=== PATIENT | female | born 1960 | race Hispanic/Latino ===

== ENCOUNTER 2019-01-27 05:00 | Observation (INO) | payer BC ==
[2019-01-24 10:01] LABS: BASOPHILS % 0.3 % (0.0-1.0); EOSINOPHILS # (AUTO) 0.1 (0.0-0.4); EOSINOPHILS % 1.1 % (0.0-6.0); HEMATOCRIT 39.6 % (34.2-44.1); HEMOGLOBIN 13.1 g/dL (12.0-16.0); LYMPHOCYTES # (AUTO) 2.3 (1.0-3.2); LYMPHOCYTES % 32.8 % (18.0-39.1); MEAN CORPUSCULAR HGB CONC 33.1 g/dL (31-35); MEAN CORPUSCULAR VOLUME 90.6 fL (81-99); MONOCYTES # (AUTO) 0.5 (0.2-0.8); MONOCYTES % 6.4 % (4.4-11.3); NEUTROPHILS # (AUTO) 4.1 (2.1-6.9); NEUTROPHILS % 59.1 % (38.7-80.0); PLATELET COUNT 365 x10e3/uL (140-360); RED BLOOD COUNT 4.37 x10e6/uL (3.6-5.1); RED CELL DISTRIBUTION WIDTH 11.9 % (11.7-14.4)
[~2019-01-27] VITALS: Ht 149.9 cm; Wt 54.4 kg
[~2019-01-27 05:00] MED LIST: ACETAMINOPHEN650 MG PO; CHOLESTEROL MED PO; FAMOTIDINE20 MG PO; HYDROCODONE-AP1 EA15 PO; IBUPROFEN400 MG PO; SERTRALINE HCL25 MG PO; TRAMADOL HCL50 MG PO; [UNRECOGNIZED DRUG - OTHER] PO
--- OUTSIDE RECORDS SUMMARY | 2019-01-27 05:09 | XMS REPORT | Clinical Summary ---
Author Author [facility] Organization [facility] Address Unknown Phone Unavailable Care Team Providers Care Exhibit Builder Name Role Phone Alec Zapata MD PCP Allergies Comments Active Allergy Reactions Severity Noted Date dizziness Tramadol Other (See 07/31/2017 Comments) Medications End Date Status Medication Sig Dispensed Refills Start Date Active lidocaine (XYLOCAINE) 5 % APPLY 1-2 3 ointment GRAMS TO 7 AFFECTED AREA(S) 3-4 TIMES A DAY. Active ibuprofen (ADVIL,MOTRIN) TK 1 T PO BID 0 800 MG tablet PRN 8 Active ibuprofen (ADVIL,MOTRIN) Take 1 tablet 30 tablet 0 600 MG tablet (600 mg 8 total) by mouth every 6 (six) hours as needed for mild pain for up to 30 doses. 07/24/2018 Discontinued meloxicam (MOBIC) 15 mg Take 1 tablet 30 tablet 0 tablet (15 mg total) 7 by mouth daily. Active Problems Problem Noted Date Chronic pain of right knee 07/31/2017 Post-traumatic osteoarthritis of right knee 07/31/2017 Encounters Care Team Description Date Type Specialty Joshua Jensen DO Abdominal wall strain, initial encounter (Primary Dx) 07/24/2018 Emergency Emergency Medicine after 01/26/2018 Social History Date Tobacco Use Types Packs/Day Years Used Former Smoker Alcohol Use Drinks/Week oz/Week Comments No Sex Assigned at Date Recorded Not on file Industry Job Start Date Occupation Not on file Not on file Not on file Travel End Travel History Travel Start No recent travel history available. Last Filed Vital Signs Time Taken Vital Sign Reading 07/24/2018 12:22 PM CDT Blood Pressure 139/75 07/24/2018 12:22 PM CDT Pulse 58 07/24/2018 12:22 PM CDT Temperature 35.9 C (96.7 F) 07/24/2018 12:22 PM CDT Respiratory Rate 18 07/24/2018 12:22 PM CDT Oxygen Saturation 100% - Inhaled Oxygen - Concentration 07/24/2018 7:53 AM CDT Weight 56.2 kg (124 lb) 07/24/2018 7:53 AM CDT Height 149.9 cm (4' 11") 07/24/2018 7:53 AM CDT Body Mass Index 25.04 Plan of Treatment Health Maintenance Due Date Last Done Comments CERVICAL CANCER SCREENING 1981 BREAST CANCER SCREENING 2010 COLON CANCER SCREENING 2010 SHINGLES VACCINES (#1) 2010 INFLUENZA VACCINE 05/22/2019 Procedures Comments Procedure Name Priority Date/Time Associated Diagnosis CT ABDOMEN PELVIS W STAT 07/24/2018 CONTRAST 11:26 AM CDT URINALYSIS SCREEN AND Routine 07/24/2018 MICROSCOPY, WITH REFLEX 9:21 AM CDT TO CULTURE URINE CULTURE Routine 07/24/2018 9:21 AM CDT ESTIMATED GFR STAT 07/24/2018 9:07 AM CDT COMPREHENSIVE METABOLIC STAT 07/24/2018 PANEL 9:07 AM CDT HC COMPLETE BLD COUNT STAT 07/24/2018 W/AUTO DIFF 9:07 AM CDT after 01/26/2018 Results * CT Abdomen Pelvis W Contrast (07/24/2018 11:26 AM CDT) Narrative Performed At EXAMINATION:CT ABDOMEN PELVIS W CONTRAST [facility] CLINICAL HISTORY:llq abd pain TECHNIQUE: Multiple axial CT images of the abdomen and pelvis are obtained with the use of intravenous contrast. Coronal and sagittal 3-D reconstructions are obtained. CT scans are performed using radiation dose reduction techniques.Technical factors are evaluated and adjusted to ensure appropriate moderation of exposure.Automated dose management technology is applied to adjust radiation exposure while achieving a diagnostic quality image. COMPARISON:None. FINDINGS: Visualized lower lung zones are clear. The gallbladder has been removed. The CT appearance of the liver, spleen, adrenal glands and pancreas is unremarkable. The abdominal aorta has no aneurysmal dilatation. There is no retroperitoneal adenopathy. The right kidney does not have any hydronephrosis. There are no stones seen within the right kidney. The left kidney demonstrates multiple 2 mm stones to be present. There is no hydronephrosis nor any solid renal mass. Stones are seen within the upper pole. CT Pelvis: There is no evidence of any pneumoperitoneum. Stomach does not demonstrate any focal wall thickening. Evaluation of the GI tract is limited without any oral contrast. A ventral hernia is present with only fat extending through the hernia. There is no evidence of any pneumoperitoneum. Colon does not demonstrate any focal wall thickening. There is no focal bowel obstruction. The colon does not have any focal inflammatory change. Small bowel is not dilated. There is no inguinal hernia. The bladder does not demonstrate any masses. There is no inguinal adenopathy present. IMPRESSION: 1. The left kidney demonstrates multiple 2 mm nonobstructing stone seen within the upper pole of the left kidney. There is no hydronephrosis. 2. The right kidney does not have any stones or any hydronephrosis. 3. There are no ureteral or bladder stones. 4. There is no bowel obstruction nor any dilated loops of bowel. 5. The colon does not have any focal inflammation. Mild colonic fecal retention is present. [id number] Procedure Note Hm Interface, Radiology Results Incoming - 07/24/2018 11:36 AM CDT EXAMINATION: CT ABDOMEN PELVIS W CONTRAST CLINICAL HISTORY: llq abd pain TECHNIQUE: Multiple axial CT images of the abdomen and pelvis are obtained with the use of intravenous contrast. Coronal and sagittal 3-D reconstructions are obtained. CT scans are performed using radiation dose reduction techniques. Technical factors are evaluated and adjusted to ensure appropriate moderation of exposure. Automated dose management technology is applied to adjust radiation exposure while achieving a diagnostic quality image. COMPARISON: None. FINDINGS: Visualized lower lung zones are clear. The gallbladder has been removed. The CT appearance of the liver, spleen, adrenal glands and pancreas is unremarkable. The abdominal aorta has no aneurysmal dilatation. There is no retroperitoneal adenopathy. The right kidney does not have any hydronephrosis. There are no stones seen within the right kidney. The left kidney demonstrates multiple 2 mm stones to be present. There is no hydronephrosis nor any solid renal mass. Stones are seen within the upper pole. CT Pelvis: There is no evidence of any pneumoperitoneum. Stomach does not demonstrate any focal wall thickening. Evaluation of the GI tract is limited without any oral contrast. A ventral hernia is present with only fat extending through the hernia. There is no evidence of any pneumoperitoneum. Colon does not demonstrate any focal wall thickening. There is no focal bowel obstruction. The colon does not have any focal inflammatory change. Small bowel is not dilated. There is no inguinal hernia. The bladder does not demonstrate any masses. There is no inguinal adenopathy present. IMPRESSION: 1. The left kidney demonstrates multiple 2 mm nonobstructing stone seen within the upper pole of the left kidney. There is no hydronephrosis. 2. The right kidney does not have any stones or any hydronephrosis. 3. There are no ureteral or bladder stones. 4. There is no bowel obstruction nor any dilated loops of bowel. 5. The colon does not have any focal inflammation. Mild colonic fecal retention is present. [id number] Performing Organization Address City/State/Zipcode Phone Number [facility] [address] [place] [address] * Urinalysis screen and microscopy, with reflex to culture (07/24/2018 9:21 AM CDT) Specimen site Clean catch [facility] GENOMIC MEDICINE Color, UA Straw [facility] GENOMIC MEDICINE Appearance, UA Clear [facility]OLOGY AND GENOMIC MEDICINE Specific gravity, UA 1.014 1.001 - 1.035 [facility]OLOGY AND GENOMIC MEDICINE pH, UA 5.0 5.0 - 8.5 [facility] AND GENOMIC MEDICINE Protein, UA Negative Negative [facility] AND GENOMIC MEDICINE Glucose, UA Negative Negative [facility]OLOGY AND GENOMIC MEDICINE Ketones, UA Negative Negative [facility] AND GENOMIC MEDICINE Bilirubin, UA Negative Negative [facility] AND GENOMIC MEDICINE Blood, UA Negative Negative [facility] AND GENOMIC MEDICINE Nitrite, UA Negative Negative [facility]OLOGY AND GENOMIC MEDICINE Urobilinogen, UA Negative <2.0 [facility] AND GENOMIC MEDICINE Leukocyte esterase, UA Negative Negative [facility]OLOG[facility] AND GENOMIC MEDICINE Epithelial cells, UA Few /HPF [facility]OLOGY AND GENOMIC MEDICINE WBC, UA 1 0 - 5 /HPF [facility]OLOG[facility] AND GENOMIC MEDICINE RBC, UA None seen 0 - 5 /HPF [facility] GENOMIC MEDICINE Bacteria, UA None seen None seen [facility] GENOMIC MEDICINE Yeast, UA None seen [facility] AND GENOMIC MEDICINE Yeast with pseudohyphae, None seen [facility] UA PATHOLOGY AND GENOMIC MEDICINE Hyaline casts, UA 1 /LPF [facility]OMIC MEDICINE Specimen Urine Performing Organization Address City/State/Zipcode Phone Number [facility] [address] [place] [address] PATHOLOGY AND GENOMIC MEDICINE * Urine culture (07/24/2018 9:21 AM CDT) Urine culture SEE COMMENTComment: [facility] Bacteriuria screen negative. PATHOLOGY AND GENOMIC MEDICINE Specimen Urine Performing Organization Address City/[facility]/Zipcode Phone Number [facility] [address] [place] [address] PATHOLOGY AND GENOMIC MEDICINE * Estimated GFR (07/24/2018 9:07 AM CDT) Estimated GFR 90 mL/min/1.73 m2 [facility] Comment: PATHOLOGY AND CatergoryUnitsInte GENOMIC MEDICINE rpretation G1 >=90 Normal or high G2 60-89Mildly decreased Y1s16-50 Mildly to moderately decreased [id number] Moderately to severely decreased G4 15-29Severely decreased G5 <15Kidney failure The eGFR was calculated using the Chronic Kidney Disease Epidemiology Collaboration (CKD-EPI) equation. Interpretation is based on recommendations of the National Kidney Foundation-Kidney Disease Outcomes Quality Initiative (NKF-KDOQI) published in 2014. Specimen Plasma specimen Performing Organization Address City/[facility]/Zipcode Phone Number [facility] [address] [place] [address] PATHOLOGY AND GENOMIC MEDICINE * CBC with platelet and differential (07/24/2018 9:07 AM CDT) WBC 5.5 4.2 - 11.0 k/uL [facility] GENOMIC MEDICINE RBC 4.30 4.04 - 5.86 m/uL [facility] GENOMIC MEDICINE HGB 12.7 11.5 - 15.3 g/dL [facility] AND GENOMIC MEDICINE HCT 38.5 34.0 - 45.0 % [facility] AND GENOMIC MEDICINE MCV 89.5 80.0 - 98.0 fL [facility] GENOMIC MEDICINE MCH 29.5 27.0 - 34.0 pg [facility]OLOG[facility] AND GENOMIC MEDICINE MCHC 33.0 31.5 - 36.5 g/dL [facility]OLOG[facility] AND GENOMIC MEDICINE RDW - SD 39.8 37.0 - 51.0 fL [facility] AND GENOMIC MEDICINE MPV 9.8 7.4 - 10.4 fL [facility] GENOMIC MEDICINE Platelet count 387 150 - 400 k/uL [facility]OLOGY AND GENOMIC MEDICINE Nucleated RBC 0.00 /100 WBC [facility]OLOGY AND GENOMIC MEDICINE Neutrophils 51.2 36.0 - 66.0 % [facility] AND GENOMIC MEDICINE Lymphocytes 41.3 24.0 - 44.0 % [facility] AND GENOMIC MEDICINE Monocytes 5.5 0.0 - 6.0 % [facility] GENOMIC MEDICINE Eosinophils 1.6 0.0 - 6.0 % [facility] AND GENOMIC MEDICINE Basophils 0.2 0.0 - 1.2 % [facility] AND GENOMIC MEDICINE Immature granulocytes 0.2 0.0 - 1.0 % [facility] GENOMIC MEDICINE Specimen Blood Performing Organization Address City/State/Zipcode Phone Number [facility] [address] [place] [address] PATHOLOGY AND GENOMIC MEDICINE * Comprehensive metabolic panel (07/24/2018 9:07 AM CDT) Sodium 139 135 - 150 mEq/L [facility] AND GENOMIC MEDICINE Potassium 4.3 3.5 - 5.0 mEq/L [facility]OLOGY AND GENOMIC MEDICINE Chloride 103 98 - 112 mEq/L [facility]Y AND GENOMIC MEDICINE CO2 24 24 - 31 mmol/L [facility]OLOGY AND GENOMIC MEDICINE Anion gap 12@ANIO 7 - 15 mEq/L [facility]OLOGY AND GENOMIC MEDICINE BUN 16 7 - 18 mg/dL [facility]OLOGY AND GENOMIC MEDICINE Creatinine 0.74 0.50 - 0.90 mg/dL [facility]OLOGY AND GENOMIC MEDICINE Glucose 102 (H) 65 - 100 mg/dL [facility]OLOGY AND GENOMIC MEDICINE Calcium 9.2 8.3 - 10.2 mg/dL [facility]OLOGY AND GENOMIC MEDICINE Protein 7.7 6.3 - 8.3 g/dL [facility]OLOGY AND GENOMIC MEDICINE Albumin 4.1 3.5 - 5.0 g/dL [facility]OLOG[facility] AND GENOMIC MEDICINE A/G ratio 1.1 0.7 - 3.8 [facility]OLOG[facility] AND GENOMIC MEDICINE Alkaline phosphatase 104 0 - 104 U/L [facility] AND GENOMIC MEDICINE AST 25 10 - 35 U/L [facility]OLOGY AND GENOMIC MEDICINE ALT 19 5 - 50 U/L [facility] PATHOLOGY AND GENOMIC MEDICINE Total bilirubin 0.3 0.2 - 1.2 mg/dL [facility] AND GENOMIC MEDICINE Specimen Plasma specimen Performing Organization Address City/State/[facility] Phone Number [facility] [address] [place] [address] PATHOLOGY AND GENOMIC MEDICINE after 01/26/2018 Insurance Payer Benefit Subscriber ID Type Phone Address Plan / Group BCBS BCBS xxxxxxxxxxxx PPO CHOICE PPO/[place] [id number] [facility] ([place]) [place] [address] Advance Directives Patient has advance care planning documents on file. For more information, bing hart contact: Jovani Juan [address] [place] [address]
[2019-01-27] MEDS ORDERED: CELECOXIB 200 MG CAP ONE (05:23)
[2019-01-27] MEDS ORDERED: DEXAMETHASONE SOD PHOS 10 MG/1 ML VIAL ONE (05:23)
[2019-01-27] MEDS ORDERED: CEFAZOLIN SOD 2 GM/D5W 50ML 50 ML IV ONE (05:24)
[2019-01-27] MEDS ORDERED: GABAPENTIN 300 MG CAP ONE (05:24)
[2019-01-27] MEDS ORDERED: SODIUM CHLORIDE 0.9% 500ML 500 ML ONE (05:55)
[2019-01-27] MEDS ORDERED: VANCOMYCIN HCL 1,000 MG ONE (05:55)
[2019-01-27] MEDS ORDERED: BACITRACIN 50,000 UNIT VIAL ONE (05:56)
[2019-01-27] MEDS ORDERED: TRANEXAMIC ACID 1,000 MG/10 ML ML ONE (05:56)
[2019-01-27] MEDS ORDERED: ROPIVACAINE 246.25 MG, EPINEPHRINE HCL 1:1000 1ML 0.5 MG, CLONIDINE HCL 0.08 MG, KETORO... INJ ONE ×5 (07:30)
[2019-01-27] MEDS ORDERED: PROMETHAZINE HCL (IM) 25 MG/ML VIAL IM PRN (08:30)
[2019-01-27] MEDS ORDERED: ACETAMINOPHEN 650 MG SUPP PR PRN (08:30)
[2019-01-27] MEDS ORDERED: ONDANSETRON HCL INJ 2MG/ML 2ML 2 MG/ML VIAL IV PRN (08:30)
[2019-01-27] MEDS ORDERED: HYDROCODONE/APAP 7.5MG-325MG 1 EA TAB PO PRN (08:30)
[2019-01-27] MEDS ORDERED: DIPHENHYDRAMINE HCL INJ 50 MG/ML VIAL IM/IV PRN (08:30)
[2019-01-27] MEDS ORDERED: DOCUSATE SODIUM 100 MG CAP PO PRN (08:30)
--- OUTSIDE RECORDS SUMMARY | 2019-01-27 08:42 | XMS REPORT | Clinical Summary ---
Author Author [facility] Address Unknown Phone Unavailable Care Team Providers Care Campus Director Name Role Phone Alec Zapata MD PCP [...] inflammation. Mild colonic fecal retention is present. [id number] Procedure Note Hm Interface, Radiology Results Incoming [...] inflammation. Mild colonic fecal retention is present. [id number] Performing Organization Address City/State/Zipcode Phone Number [facility] [address] [place] [address] * Urinalysis screen and microscopy, with reflex to culture (07/24/2018 9:21 AM CDT) Specimen site Clean catch [facility] DE[facility]MENT OF PATHOLOGY AND GENOMIC MEDICINE Color, UA Straw [facility] OF PATHOLOGY AND GENOMIC MEDICINE Appearance, UA Clear [facility]MENT OF PATHOLOGY AND GENOMIC MEDICINE Specific gravity, UA 1.014 1.001 - 1.035 [facility]MENT OF PATHOLOGY AND GENOMIC MEDICINE pH, UA 5.0 5.0 - 8.5 [facility]MENT OF PATHOLOGY AND GENOMIC MEDICINE Protein, UA Negative Negative [facility]MENT OF PATHOLOGY AND GENOMIC MEDICINE Glucose, UA Negative Negative [facility]MENT OF PATHOLOGY AND GENOMIC MEDICINE Ketones, UA Negative Negative [facility]MENT OF PATHOLOGY AND GENOMIC MEDICINE Bilirubin, UA Negative Negative [facility] OF PATHOLOGY AND GENOMIC MEDICINE Blood, UA Negative Negative [facility]MENT OF PATHOLOGY AND GENOMIC MEDICINE Nitrite, UA Negative Negative [facility]MENT OF PATHOLOGY AND GENOMIC MEDICINE Urobilinogen, UA Negative <2.0 [facility]MENT OF PATHOLOGY AND GENOMIC MEDICINE Leukocyte esterase, UA Negative Negative [facility]MENT OF PATHOLOGY AND GENOMIC MEDICINE Epithelial cells, UA Few /HPF [facility] DEPARTMENT OF PATHOLOGY AND GENOMIC MEDICINE WBC, UA 1 0 - 5 /HPF [facility] DEPARTMENT OF PATHOLOGY AND GENOMIC MEDICINE RBC, UA None seen 0 - 5 /HPF [facility]MENT OF PATHOLOGY AND GENOMIC MEDICINE Bacteria, UA None seen None seen [facility]MENT OF PATHOLOGY AND GENOMIC MEDICINE Yeast, UA None seen [facility]MENT OF PATHOLOGY AND GENOMIC MEDICINE Yeast with pseudohyphae, None seen [facility] OF UA PATHOLOGY AND GENOMIC MEDICINE Hyaline casts, UA 1 /LPF [facility] OF PATHOLOGY AND GENOMIC MEDICINE Specimen Urine Performing Organization Address City/State/Zipcode Phone Number [facility] DE[facility] OF [address] [place] [address] PATHOLOGY AND GENOMIC MEDICINE * Urine culture (07/24/2018 9:21 AM CDT) Urine culture SEE COMMENTComment: [facility] DE[facility]MENT OF Bacteriuria screen negative. PATHOLOGY AND GENOMIC MEDICINE Specimen Urine Performing Organization Address City/[facility]/Zipcode Phone Number [facility] DEPARTMENT OF [address] [place] [address] PATHOLOGY AND GENOMIC MEDICINE * Estimated GFR (07/24/2018 9:07 AM CDT) Estimated GFR 90 mL/min/1.73 m2 [facility] OF Comment: PATHOLOGY AND CatergoryUnitsInte GENOMIC MEDICINE rpretation G1 >=90 Normal or high G2 60-89Mildly decreased W2e90-56 Mildly to moderately decreased [id number] Moderately to severely decreased G4 15-29Severely decreased G5 <15Kidney failure The eGFR was calculated using the Chronic Kidney Disease Epidemiology Collaboration (CKD-EPI) equation. Interpretation is based on recommendations of the National Kidney Foundation-Kidney Disease Outcomes Quality Initiative (NKF-KDOQI) published in 2014. Specimen Plasma specimen Performing Organization Address City/[facility]/Zipcode Phone Number [facility] DE[facility]MENT OF [address] [place] [address] PATHOLOGY AND GENOMIC MEDICINE * CBC with platelet and differential (07/24/2018 9:07 AM CDT) WBC 5.5 4.2 - 11.0 k/uL [facility] DEPARTMENT OF PATHOLOGY AND GENOMIC MEDICINE RBC 4.30 4.04 - 5.86 m/uL [facility] DE[facility]MENT OF PATHOLOGY AND GENOMIC MEDICINE HGB 12.7 11.5 - 15.3 g/dL [facility] DE[facility]MENT OF PATHOLOGY AND GENOMIC MEDICINE HCT 38.5 34.0 - 45.0 % [facility] DEPARTMENT OF PATHOLOGY AND GENOMIC MEDICINE MCV 89.5 80.0 - 98.0 fL [facility] DEPARTMENT OF PATHOLOGY AND GENOMIC MEDICINE MCH 29.5 27.0 - 34.0 pg [facility] DEPARTMENT OF PATHOLOGY AND GENOMIC MEDICINE MCHC 33.0 31.5 - 36.5 g/dL [facility] DEPARTMENT OF PATHOLOGY AND GENOMIC MEDICINE RDW - SD 39.8 37.0 - 51.0 fL [facility] DEPARTMENT OF PATHOLOGY AND GENOMIC MEDICINE MPV 9.8 7.4 - 10.4 fL [facility]PARTMENT OF PATHOLOGY AND GENOMIC MEDICINE Platelet count 387 150 - 400 k/uL [facility] DEPARTMENT OF PATHOLOGY AND GENOMIC MEDICINE Nucleated RBC 0.00 /100 WBC [facility] DEPARTMENT OF PATHOLOGY AND GENOMIC MEDICINE Neutrophils 51.2 36.0 - 66.0 % [facility] DEPARTMENT OF PATHOLOGY AND GENOMIC MEDICINE Lymphocytes 41.3 24.0 - 44.0 % [facility] DEPARTMENT OF PATHOLOGY AND GENOMIC MEDICINE Monocytes 5.5 0.0 - 6.0 % [facility] DEPARTMENT OF PATHOLOGY AND GENOMIC MEDICINE Eosinophils 1.6 0.0 - 6.0 % [facility] DEPARTMENT OF PATHOLOGY AND GENOMIC MEDICINE Basophils 0.2 0.0 - 1.2 % [facility] DEPARTMENT OF PATHOLOGY AND GENOMIC MEDICINE Immature granulocytes 0.2 0.0 - 1.0 % [facility] DEPARTMENT OF PATHOLOGY AND GENOMIC MEDICINE Specimen Blood Performing Organization Address City/State/Zipcode Phone Number [facility] [address] [place] [address] PATHOLOGY AND GENOMIC MEDICINE * Comprehensive metabolic panel (07/24/2018 9:07 AM CDT) Sodium 139 135 - 150 mEq/L [facility] DEPARTMENT OF PATHOLOGY AND GENOMIC MEDICINE Potassium 4.3 3.5 - 5.0 mEq/L [facility] DEPARTMENT OF PATHOLOGY AND GENOMIC MEDICINE Chloride 103 98 - 112 mEq/L [facility] OF PATHOLOGY AND GENOMIC MEDICINE CO2 24 24 - 31 mmol/L [facility] OF PATHOLOGY AND GENOMIC MEDICINE Anion gap 12@ANIO 7 - 15 mEq/L [facility] DEPARTMENT OF PATHOLOGY AND GENOMIC MEDICINE BUN 16 7 - 18 mg/dL [facility] DEPARTMENT OF PATHOLOGY AND GENOMIC MEDICINE Creatinine 0.74 0.50 - 0.90 mg/dL [facility] DE[facility]MENT OF PATHOLOGY AND GENOMIC MEDICINE Glucose 102 (H) 65 - 100 mg/dL [facility] DE[facility]MENT OF PATHOLOGY AND GENOMIC MEDICINE Calcium 9.2 8.3 - 10.2 mg/dL [facility]MENT OF PATHOLOGY AND GENOMIC MEDICINE Protein 7.7 6.3 - 8.3 g/dL [facility]MENT OF PATHOLOGY AND GENOMIC MEDICINE Albumin 4.1 3.5 - 5.0 g/dL [facility] DEPARTMENT OF PATHOLOGY AND GENOMIC MEDICINE A/G ratio 1.1 0.7 - 3.8 [facility] DEPARTMENT OF PATHOLOGY AND GENOMIC MEDICINE Alkaline phosphatase 104 0 - 104 U/L [facility] DEPARTMENT OF PATHOLOGY AND GENOMIC MEDICINE AST 25 10 - 35 U/L [facility] DEPARTMENT OF PATHOLOGY AND GENOMIC MEDICINE ALT 19 5 - 50 U/L [facility] DEPARTMENT OF PATHOLOGY AND GENOMIC MEDICINE Total bilirubin 0.3 0.2 - 1.2 mg/dL [facility] DEPARTMENT OF PATHOLOGY AND GENOMIC MEDICINE Specimen Plasma specimen Performing Organization Address City/State[facility] Phone Number [facility] DE[facility] [address] [place] [address] PATHOLOGY AND GENOMIC MEDICINE after 01/26/2018 Insurance Payer Benefit Subscriber ID Type Phone Address Plan / Group BCBS BCBS xxxxxxxxxxxx PPO CHOICE PPO/[place] [id number] [facility] ([place]) [place] [address] Advance Directives Patient has advance care planning documents on file. For more information, bing hart contact: Jovani Juan [address] [place] [address]
[2019-01-27] MEDS ORDERED: HYDROMORPHONE 2MG/ML 2 MG/ML ML ONE (08:57)
[2019-01-27] MEDS ORDERED: CELECOXIB 100 MG CAP PO SCH (09:00)
--- NOTE | 2019-01-27 11:22 | Diagnostic Imaging Report ---
Right knee radiographs-2 views History: Postoperative. Findings: Status post total right total knee arthroplasty with prosthetic components in anatomic alignment. Overlying subcutaneous emphysema and surgical skin gilberto are present. No evidence of acute fracture. IMPRESSION: Status post right total knee arthroplasty in anatomic position. Signed by: Dr. Wilfredo Grmialdo MD on 01/27/2019 11:19 AM
[2019-01-27 12:00] VITALS: BP 114/69
[2019-01-27] MEDS: SODIUM CHLORIDE 0.9% 1000ML 1,000 ML IV SCH (12:00)
--- NOTE | 2019-01-27 12:01 | Operative Report ---
DATE OF PROCEDURE: 01/27/2019 SURGEON: Torsten Mart MD BULK PICKER: Jim Hidalgo, certified PA. PREOPERATIVE DIAGNOSIS: Osteoarthritis, right knee. POSTOPERATIVE DIAGNOSIS: Osteoarthritis, right knee. PROCEDURE: Right total knee arthroplasty. INDICATIONS: The patient is a 58-year-old lady with a long history of right knee pain. She has failed extensive conservative management and would now like to proceed with a right knee replacement. The risks and benefits of the surgery have been discussed at length. All of her questions have been answered. She states she understands and wishes to proceed. PROCEDURE IN DETAIL: The patient was brought to the operating room and placed under general anesthetic. She received prophylactic antibiotics, a regional block and tranexamic acid in the holding area. Her right lower extremity was prepped and draped in a sterile manner. A preoperative time-out was performed. The extremity was exsanguinated and a proximal tourniquet was inflated to 300 mmHg. An anterior approach with a medial parapatellar arthrotomy was performed. Clear synovial fluid was removed from the joint. Soft tissue releases were performed to bring the knee up into flexion with the patella everted. The anterior cruciate ligament was sacrificed. Meniscal remnants and marginal osteophytes were removed. An extramedullary cutting guide was used to resect the proximal tibia. The tibial base plate was size D. The central fin punch was impacted and attention was directed toward the distal femur. An intramedullary cutting guide was used to resect the distal femur in 5 degrees of valgus and rotation referencing off a combination of landmarks including Whitesides line, the posterior condyles and the epicondylar axis. The femoral component was a size #4. The anterior and posterior cuts were made. Trial reductions were performed. A 10 mm medial congruent insert provided appropriate soft tissue balancing in full extension and 90 degrees of flexion. The patella was resurfaced with a 29 mm patellar button. The thickness was checked before and after and was right at 22 mm. Patellar tracking was noted to be concentric. The trial implants were then removed. A 100 mL premixed pericapsular DAYDAY injection was placed into the surrounding soft tissue. The knee was thoroughly irrigated with a shower tip pulsatile lavage. A spray bottle with a mixture of polymyxin and vancomycin was also used throughout the case for irrigation. The components were cemented into place using a single mix of high viscosity Simplex cement preloaded with antibiotics. Care was taken to remove extravasated cement. The wound was further irrigated while the cement cured. 500 mg of vancomycin powder was sprinkled into the joint. The arthrotomy was then closed with interrupted #1 Ethibond. The knee was put through flexion and extension to ensure a secure closure. The skin was closed with subcuticular Vicryl and gilberto. A sterile Aquacel bandage was applied. The patient was extubated and transported to the recovery room in stable condition. At the end of the procedure, all needle and sponge counts were correct. Blood loss was minimal. Torsten Mart MD DR/HAWA /[id number]
[2019-01-27 12:27] VITALS: BP 114/69
[2019-01-27 12:30] VITALS: BP 114/69
[2019-01-27] MEDS: ACETAMINOPHEN 1000 MG/100 ML IV SCH ×2 (13:00→18:00)
[2019-01-27] MEDS ORDERED: MULTI-VITAMIN1 EACH PO (13:07)
[2019-01-27] MEDS: CEFAZOLIN SOD 1 GM/NS 50ML 50 ML IV SCH ×2 (13:54→21:45)
[2019-01-27] MEDS ORDERED: PNEUMOCOCCAL VACCINE POLYVALENT 23 MCG/0.5 ML VIAL IM NR (15:00)
[2019-01-27] MEDS: CELECOXIB 200 MG CAP PO SCH (16:28)
[2019-01-27] MEDS: ASPIRIN 325 MG TAB PO SCH (16:28)
[2019-01-27 16:35] VITALS: BP 169/80
[2019-01-27] MEDS: HYDROCODONE/APAP 5MG-325MG TAB PO PRN (16:50)
[2019-01-27] MEDS ORDERED: SEVOFLURANE INHAL SOLN 250 ML PEN BTL ONE (18:21)
[2019-01-27] MEDS ORDERED: ONDANSETRON HCL INJ 2MG/ML 2ML 2 MG/ML VIAL ONE (18:21)
[2019-01-27] MEDS ORDERED: DEXAMETHASONE SOD PHOS INJ 4 MG/ML VIAL ONE (18:21)
[2019-01-27] MEDS ORDERED: PROPOFOL IV EMULSION 10 MG/ML 20 ML VIAL ONE (18:21)
[2019-01-27] MEDS ORDERED: LIDOCAINE HCL 2% LOCAL INJ 5 ML SDV VIAL INJ ONE (18:21)
[2019-01-27] MEDS ORDERED: FENTANYL CITRATE/PF 100MCG/2 ML INJ ONE (18:49)
[2019-01-27] MEDS ORDERED: MIDAZOLAM HCL 2 MG/2 ML VIAL ONE (18:49)
[2019-01-27] MEDS ORDERED: LIDOCAINE 2% /EPINEPHRINE 20 ML SDV INJ ONE (19:11)
[2019-01-27] MEDS ORDERED: ROPIVACAINE 0.5% 5 MG/ML 30 ML SDV ONE (19:11)
[2019-01-27 20:00] VITALS: BP 119/70
[2019-01-27] MEDS ORDERED: ZOLPIDEM TARTRATE 5 MG TAB PO PRN (21:00)
--- NOTE | 2019-01-27 21:25 | NUR ---
PATIENT'S ASSISTED FROM THE REST ROOM TO THE BED, CPM APPLIED TO THE RIGHT LEG AT 60 DEGREES. MARICRUZ WRAP DRESSING DRY AND INTACT TO THE RIGHT LEG, NO BLEEDING NOTED. CALL LIGHT WITHIN EASY REACH, PATIENT INSTRUCTED TO CALL FOR ASSISTANCE NEEDED.
[2019-01-27] MEDS: KETOROLAC TROMETHAMINE 30 MG/ML VIAL IV PRN (21:45)
--- NOTE | 2019-01-27 21:46 | NUR ---
PATIENT C/O PAIN TO THE LEG WITH PAIN SCORE #6, CPM REMOVED AND PATIENT MEDICATED WITH TORADOL ORDERED. CALL LIGHT WITHIN EASY REACH, INSTRUCTED TO CALL FOR ASSISTANCE NEEDED.
[2019-01-28] VITALS: BP 106/62
[2019-01-28] MEDS: ACETAMINOPHEN 1000 MG/100 ML IV SCH ×2 (00:15→06:38)
--- NOTE | 2019-01-28 02:00 | NUR ---
PATIENT ASSISTED TO THE RESTROOM, SHE NOW BACK IN BED WITH CALL LIGHT WITHIN EASY REACH.
--- NOTE | 2019-01-28 03:47 | NUR ---
PATIENT C/O PAIN TO THE RIGHT LEG WITH PAIN SCORE #7, MEDICATED WITH NORCO 1TAB ORDERED. MARICRUZ WRAP DRESSING REMAINS DRY AND INTACT TO THE RIGHT LEG WITHOUT BLEEDING, ASSISTED PATIENT WITH ADLS. CALL LIGHT WITHIN EASY REACH, SHE'S INSTRUCTED TO CALL FOR ASSISTANCE NEEDED.
[2019-01-28 04:00] VITALS: BP 133/60
--- NOTE | 2019-01-28 05:49 | Consultation ---
DATE OF CONSULTATION: REASON FOR CONSULTATION: Postoperative medical management. HISTORY OF PRESENT ILLNESS: The patient is a 58-year-old, status post total right knee, has end-stage osteoarthritis, is doing well postoperatively with minimal pain and denies on review of systems of any chest pain, fever, chills, nausea, vomiting, headache, shortness of breath, or dizziness. PAST MEDICAL HISTORY: Significant for reflux disease, heart murmur, and elevated blood pressure. MEDICATIONS: See MAR. ALLERGIES: CRESTOR AND TRAMADOL. SOCIAL HISTORY: Positive smoker, nondrinker. Lives at home with her . FAMILY HISTORY: Noncontributory. PHYSICAL EXAMINATION: VITAL SIGNS: pulse 60, blood pressure 106/62, sats 98% on room air. GENERAL: No apparent distress. NECK: Supple. No lymphadenopathy. CARDIOVASCULAR: Regular rate and rhythm. LUNGS: Clear to auscultation bilaterally. ABDOMEN: Good bowel sounds. Soft, nontender. EXTREMITIES: No clubbing or cyanosis. NEUROLOGIC: Nonfocal. ASSESSMENT AND PLAN: Right knee . MD KELLY Escudero/HAWA /[id number]
--- NOTE | 2019-01-28 06:46 | NUR ---
PATIENT ASSISTED TO THE RESTROOM AND SHE'S NOW BACK IN BED. CPM APPLIED TO THE RIGHT LEG, SHE'S TOLERATING THE MACHINE AT 65 DEGREES. CALL LIGHT IN EASY REACH, INSTRUCTED TO NOTIFY THE NURSE OF SEVERE PAIN TO THE RIGHT KNEE.
[2019-01-28] MEDS: CEFAZOLIN SOD 1 GM/NS 50ML 50 ML IV SCH (06:55)
[2019-01-28 07:24] LABS: HEMOGLOBIN 10.4 g/dL (12.0-16.0)
[2019-01-28] MEDS ORDERED: FAMOTIDINE 20 MG TAB PO SCH (07:30)
[2019-01-28] MEDS: ASPIRIN 325 MG TAB PO SCH (07:49)
[2019-01-28] MEDS: CELECOXIB 200 MG CAP PO SCH (07:49)
[2019-01-28] MEDS: SODIUM CHLORIDE 0.9% 1000ML 1,000 ML IV SCH (07:49)
[2019-01-28 08:30] VITALS: BP 123/67
[2019-01-28] MEDS ORDERED: ACETAMINOPHEN 1000 MG/100 ML IV PRN (08:30)
[2019-01-28 09:00] VITALS: BP 123/67
[2019-01-28] MEDS ORDERED: MULTIVITAMINS/MINERALS TAB PO SCH (09:00)
[2019-01-28] MEDS: HYDROCODONE/APAP 5MG-325MG TAB PO PRN (10:28)
--- NOTE | 2019-01-28 11:40 | NUR ---
[facility] Hgb dropped from 13.1 to 10.4. No new orders
[2019-01-28 12:03] VITALS: BP 124/73
--- NOTE | 2019-01-28 12:20 | NUR ---
CASE MANAGEMENT ASSESSMENT Willow Machine Operator to bedside to discuss plan of care with patient/family. CM/SW role and care transitions discussed. Anticipated discharge plan discussed along with duration of care. CM/SW discussed patients right to make decisions in care. CM/SW work hours given. Patient lives: with [facility] Admit/Transfer: from PACU Hospital/ER visits since last admit: 0 POA/Emergency contact: Chai Gutierres [phone] Current/Previous Home Health: none; Dr. Mart's office sent referral for home health to [facility]. Pt agreeable to use them. Choice letter signed and placed in chart. Copy to pt. CM called and spoke to Kerri at [facility] and informed her that we are anticipating discharge today. She stated that they will be able to see pt tomorrow. Operative note and PT notes faxed to office at [phone] Home health information printed and given to pt. PCP/Follow-up Care: Dr. Alec Zapata - PCP; pt states she will call Dr. Mart's office tomorrow and schedule a follow up appointment. Current/Previous DME: CPM, walker, crutches, BSC; pt stated that she will have her bring walker to hospital prior to discharge. Medications (referring to index hospitalization or the first time you were in the hospital) a. Were changes made in your medications when you were in the hospital on [date of index hospitalization]? n/a b. Did you understand the changes? n/a c. Were you able to obtain your new medications right away? n/a d. Were you able to take your medications like the doctor wanted you to? n/a e. Did the hospital give you an accurate, easy to understand list of medications when you left? n/a Scale of 1-10 how comfortable does patient feel with disease management in outpatient settin Other Services: none Employment Status: unemployed Areas of Concerns: right knee arthroplasty Referral Needs: home health Education Needs: post operative instructions IMM/MELENDEZ given and signed (if applicable): n/a Goal for discharge: home with home health CM/SW left business card at the bedside with contact information. Name and number was also written on the patients whiteboard. Patient verbalized understanding of discussion. CM will follow-up with ongoing discharge and transition of care needs.
[2019-01-28] MEDS ORDERED: ASPIRIN325 MG PO (13:36)
[2019-01-28] MEDS: KETOROLAC TROMETHAMINE 30 MG/ML VIAL IV PRN (13:37)
[2019-01-28] MEDS ORDERED: NORCO 7.5-3251 EACH PO (14:15)
[2019-01-28] MEDS ORDERED: ONDANSETRON HCL 4 MG ORAL DISINTEGRATING TAB PO PRN (14:15)
--- NOTE | 2019-01-28 14:45 | NUR ---
Left hand IV discontinued. No signs of infiltration noted. 2x2 gauze and tape placed. Taken via wheelchair by PCT to personal car. Accompanied by . AAOX4 to time, person, place, situation. Respirations even and unlabored. Dressing to right knee clean, dry, and intact. Discharge instructions, rx, and all personal belongings taken with patient.
== END 2019-01-28 14:45 | disposition home health service (06) ==
LOC: OR 05:00 → PACU V 08:23 → MED/SURG 11:46
PROVIDERS: ADMIT Specialist; ATTEND Specialist
DX: M17.11 Unilateral primary osteoarthritis, right knee (principal); R01.1 Cardiac murmur, unspecified; Z88.8 Allergy status to other drugs, medicaments and biological substances; K21.9 Gastro-esophageal reflux disease without esophagitis; F17.210 Nicotine dependence, cigarettes, uncomplicated; Z01.810 Encounter for preprocedural cardiovascular examination; Z01.812 Encounter for preprocedural laboratory examination; Z23 Encounter for immunization
CPT/HCPCS: 27447; 36415 ×2; 73560; 85014; 85018; 85025; 86850; 86900; 86920; 90732; 93005; 96365; 96367; 96376; 97116 ×2; 97161; 97530; C1713 ×2; C1776; G0009; G0378 ×2; J0131 ×2; J0171; J0690 ×3; J1100 ×2; J1170; J1885 ×2; J2001 ×2; J2250; J2405; J2704; J2795; J3370; J7030 ×2; J7040